=== PATIENT | female | born 1950 | race Caucasian/White ===

== ENCOUNTER 2016-11-19 01:30 | Emergency (ER) | payer OTHER | END 2016-11-19 07:32 | disposition home or self-care (01) | LOC: ER 01:30 | DX: J20.9 Acute bronchitis, unspecified (principal); K21.9 Gastro-esophageal reflux disease without esophagitis; E78.00 Pure hypercholesterolemia, unspecified; F32.9 Major depressive disorder, single episode, unspecified | CPT/HCPCS: 71020; 87804 ==